=== PATIENT | female | born 1965 | race Caucasian/White ===

== ENCOUNTER 2019-01-23 10:41 | Outpatient (CLI) | payer OTHER | END 2019-01-23 10:46 | disposition home or self-care (01) | LOC: SONOGRAMA 10:41 | DX: E04.1 Nontoxic single thyroid nodule (principal) ==

== ENCOUNTER 2022-12-07 08:59 | Outpatient (CLI) | payer OTHER | END 2022-12-07 09:00 | disposition home or self-care (01) | LOC: SONOGRAMA 08:59 | PROVIDERS: ATTEND Pathology Anatomic Pathology & Clinical Pathology | DX: D34 Benign neoplasm of thyroid gland (principal); E04.9 Nontoxic goiter, unspecified; E04.2 Nontoxic multinodular goiter ==